=== PATIENT | male | born 1990 ===

== ENCOUNTER 2017-05-04 14:06 | Emergency (ER) | payer MEDICAID, OTHER ==
[2017-05-04 14:18] VITALS: BP 113/58
--- NOTE | 2017-05-04 14:36 | UC ---
Abdominal Pain Male HPI - HPI Summary HPI Summary: Monday had stomach ache and vomiting after drinking alcohol the night before- was able to go to work Monday night but now pain has return in the mid- epigastric area and rlq has not been able to eat today and is nauseated - History of Current Complaint Chief Complaint: UCAbdominalPain Stated Complaint: ABD PAIN Time Seen by Provider: 05/04/17 14:30 Hx Obtained From: Patient Onset/Duration: Sudden Onset Timing: Constant Severity Initially: Severe Severity Currently: Severe Pain Intensity: 10 Pain Scale Used: 0-10 Numeric Location: Discrete At: RLQ, Other - emmy umbillical Radiates: No Character: Sharp Aggravating Factor(s): Food, Movement Alleviating Factor(s): Nothing Associated Signs And Symptoms: Positive: Decreased Appetite, Nausea - Allergies/Home Medications Allergies/Adverse Reactions: Allergies Allergy/AdvReac Type Severity Reaction Status Date / Time No Known Allergies Allergy Verified 11/17/15 13:10 PMH/Surg Hx/FS Hx/Imm Hx Previously Healthy: Yes - Surgical History Surgical History: Yes Surgery Procedure, Year, and Place: Jarad in R leg - Family History Known Family History: Negative: Renal Disease, Respiratory Disease, Blood Disorder - Social History Occupation: Employed Full-time Lives: With Family Alcohol Use: Occasionally Substance Use Type: None Smoking Status (MU): Former Smoker When Did the Patient Quit Smoking/Using Tobacco: 2 years ago Review of Systems Constitutional: Negative Skin: Negative Eyes: Negative ENT: Negative Respiratory: Negative Cardiovascular: Negative Gastrointestinal: Abdominal Pain, Nausea Genitourinary: Negative Motor: Negative Neurovascular: Negative Musculoskeletal: Negative Neurological: Negative Psychological: Negative Is Patient Immunocompromised?: No All Other Systems Reviewed And Are Negative: Yes Physical Exam Triage Information Reviewed: Yes Appearance: Well-Nourished, Ill-Appearing, Pain Distress Vital Signs: Initial Vital Signs Temp 99.4 F 05/04/17 14:13 Pulse 66 05/04/17 14:13 Resp 18 05/04/17 14:13 BP 113/58 05/04/17 14:13 Pulse Ox 100 05/04/17 14:13 Vital Signs Reviewed: Yes Eye Exam: Normal Eyes: Positive: Conjunctiva Clear ENT Exam: Normal ENT: Positive: Normal ENT inspection, Hearing grossly normal. Negative: Nasal congestion, Nasal drainage, Trismus, Muffled voice, Hoarse voice Dental Exam: Normal Neck exam: Normal Neck: Positive: Supple, Nontender Respiratory Exam: Normal Respiratory: Positive: Chest non-tender, No respiratory distress, No accessory muscle use Cardiovascular Exam: Normal Cardiovascular: Positive: RRR, Pulses Normal, Brisk Capillary Refill Abdominal Exam: Other Abdomen Description: Positive: No Organomegaly, Soft, McBurney's Point Tenderness, Other: - mid abdomen pain. Negative: CVA Tenderness (R), CVA Tenderness (L) Bowel Sounds: Positive: Present Musculoskeletal Exam: Normal Neurological Exam: Normal Neurological: Positive: Alert Psychological Exam: Normal Skin Exam: Normal Abd Pain Male Course/Dx - Course Course Of Treatment: NPO trnsfer to [facility] - Differential Dx/Clinical Impression Provider Diagnoses: Abdomen pain - Physician Notification/Consults Discussed Patient Care With: Kishore Bean Time Discussed With Above Provider: 14:45 Instructed by Provider To: Transfer Discharge - Discharge Plan Condition: Good Disposition: TRANS HIGHER LVL OF CARE FAC Referrals: Non Staff,Doctor [Primary Care Provider] -
== END 2017-05-04 14:50 | disposition short-term general hospital (02) ==
LOC: UCCORT 14:06
DX: R10.13 Epigastric pain (principal); Z87.891 Personal history of nicotine dependence
CPT/HCPCS: 99213; G0463